=== PATIENT | female | born 1990 | race American Indian/Alaskan Native ===

== ENCOUNTER 2018-06-05 05:03 | Emergency (ER) | payer SELFPAY ==
[2018-06-05 05:28] VITALS: BP 121/79
--- NOTE | 2018-06-05 06:15 | Emergency Department Report ---
ED ENT HPI - General Chief complaint: Dental/Oral Stated complaint: SWOLLEN LIP Time Seen by Provider: 06/05/18 06:07 Source: patient Mode of arrival: Ambulatory Limitations: No Limitations - History of Present Illness Initial comments: 28-year-old -[place] female comes in reporting that she's had a bad tooth in her mouth for about a month she has been gargling with peroxide and this morning she woke up with her lips swollen. Patient states she's been taking ibuprofen PM last dose was this morning around 1 AM. Patient denies any fever chills no nausea vomiting. Patient does report a couch he took penicillin currently takes no medications on a daily basis and has no past medical history. MD complaint: tooth pain -: month(s) (1) Location: tooth # (13) Severity: mild Severity scale (0 -10): 4 Quality: aching Consistency: constant Improves with: NSAID Worsens with: eating Context- Dental: history of dental caries Associated Symptoms: gum swelling. denies: fever - Related Data Previous Rx's Medication Instructions Recorded Last Taken Type Clindamycin [Clindamycin CAP] 300 mg PO Q8H 10 Days #30 cap 06/05/18 Unknown Rx Ibuprofen [Motrin 400 MG tab] 400 mg PO Q8H PRN #30 tablet 06/05/18 Unknown Rx Allergies Allergy/AdvReac Type Severity Reaction Status Date / Time Penicillins Allergy Rash Verified 06/05/18 05:22 ED Dental HPI - General Chief complaint: Dental/Oral Stated complaint: SWOLLEN LIP Time Seen by Provider: 06/05/18 06:07 Source: patient Mode of arrival: Ambulatory Limitations: No Limitations - Related Data Previous Rx's Medication Instructions Recorded Last Taken Type Clindamycin [Clindamycin CAP] 300 mg PO Q8H 10 Days #30 cap 06/05/18 Unknown Rx Ibuprofen [Motrin 400 MG tab] 400 mg PO Q8H PRN #30 tablet 06/05/18 Unknown Rx Allergies Allergy/AdvReac Type Severity Reaction Status Date / Time Penicillins Allergy Rash Verified 06/05/18 05:22 ED Review of Systems ROS: Stated complaint: SWOLLEN LIP Other details as noted in HPI Comment: All other systems reviewed and negative ENT: dental pain ED Past Medical Hx - Past Medical History Previous Medical History?: No - Surgical History Past Surgical History?: No - Social History Smoking Status: Never Smoker Substance Use Type: None - Medications Home Medications: Home Medications Medication Instructions Recorded Confirmed Last Taken Type Clindamycin [Clindamycin CAP] 300 mg PO Q8H 10 Days #30 cap 06/05/18 Unknown Rx Ibuprofen [Motrin 400 MG tab] 400 mg PO Q8H PRN #30 tablet 06/05/18 Unknown Rx ED Physical Exam - General Limitations: No Limitations General appearance: alert, in no apparent distress - Head Head exam: Present: atraumatic, normocephalic - Eye Eye exam: Present: normal appearance - Expanded ENT Exam Expanded Teeth exam: Present: dental tenderness # (13), gingival enlargement, other (mild swelling of the upper chest cheek) Throat exam: Positive: normal inspection - Neck Neck exam: Present: normal inspection, full ROM. Absent: tenderness, lymphadenopathy - Respiratory Respiratory exam: Present: normal lung sounds bilaterally. Absent: respiratory distress - Cardiovascular Cardiovascular Exam: Present: regular rate, normal rhythm. Absent: systolic murmur, diastolic murmur, rubs, gallop ED Course Vital Signs 06/05/18 05:23 Temperature 98.2 F Pulse Rate 92 H Respiratory 18 Rate Blood Pressure 121/79 O2 Sat by Pulse 100 Oximetry ED Medical Decision Making - Medical Decision Making Patient has been evaluated by this provider in fast track. Patient will be placed on clindamycin for tooth infection. Patient will be referred to community [facility]. Patient continue with ibuprofen or Tylenol for pain management. Critical care attestation.: If time is entered above; I have spent that time in minutes in the direct care of this critically ill patient, excluding procedure time. ED Disposition Clinical Impression: Abscess, dental Disposition: DC-01 TO HOME OR SELFCARE Is pt being admited?: No Does the pt Need Aspirin: No Condition: Stable Instructions: Dental Abscess (ED) Additional Instructions: Complete antibiotics as prescribed. Pain medication as needed. Increase her water intake while taking ibuprofen and follow up with the dentist. Prescriptions: Clindamycin [Clindamycin CAP] 300 mg PO Q8H 10 Days #30 cap Ibuprofen [Motrin 400 MG tab] 400 mg PO Q8H PRN #30 tablet PRN Reason: Pain, Moderate (4-6) Referrals: [facility] [Outside] - 3-5 Days [facility] [Outside] - 3-5 Days [facility] [Outside] - 3-5 Days Forms: Work/School Release Form(ED)
== END 2018-06-05 06:30 | disposition home or self-care (01) ==
LOC: ED 05:03
DX: K04.7 Periapical abscess without sinus (principal); Z88.0 Allergy status to penicillin
CPT/HCPCS: 99282

== ENCOUNTER 2018-11-29 18:43 | Emergency (ER) | payer SELFPAY ==
[2018-11-29] MEDS ORDERED: NACL 0.9% 500 ML 500 ML IV ONE (18:51)
--- NOTE | 2018-11-29 18:57 | Event Note ---
ED Screening Note ED Screening Note: on flagyl had stool tests that were positive per pt for hpylori she went to Dr Hernandez for nausea/vomiting co tachycardia today stool x 1; nausea lmp 7-15 no cig no etoh no drugs no fever or chills concern for underlying infection This initial assessment/diagnostic orders/clinical plan/treatment(s) is/are subject to change based on patients health status, clinical progression and re- assessment by fellow clinical providers in the ED. Further treatment and workup at subsequent clinical providers discretion. Patient/guardian urged not to elope from the ED as their condition may be serious if not clinically assessed and managed. Initial orders include: labs urine
[2018-11-29 19:24] LABS: Basophils % (Auto) 0.4 % (0.0-1.8); Eosinophils # (Auto) 0.1 K/mm3 (0.0-0.4); Hematocrit 37.2 % (30.3-42.9); Lymphocytes # (Auto) 2.3 K/mm3 (1.2-5.4); Lymphocytes % (Auto) 28.2 % (13.4-35.0); Mean Corpuscular HGB Conc 35 % (30-34); Mean Corpuscular Volume 96 fl (79-97); Monocytes # (Auto) 0.7 K/mm3 (0.0-0.8); Monocytes % (Auto) 8.9 % (0.0-7.3); Platelet Count 297 K/mm3 (140-440); Red Blood Count 3.87 M/mm3 (3.65-5.03); Red Cell Distribution Width 13.9 % (13.2-15.2)
[2018-11-29 19:36] LABS: Alanine Aminotransferase 12 units/L (7-56); Albumin 4.4 g/dL (3.9-5); BUN/Creatinine Ratio 18; Blood Urea Nitrogen 11 mg/dL (7-17); Calcium 9.2 mg/dL (8.4-10.2); Hemolysis Index 4
--- NOTE | 2018-11-29 23:12 | Emergency Department Report ---
HPI - General Chief Complaint: Arrhythmia/Palpitations Time Seen by Provider: 11/29/18 18:48 - HPI HPI: 28-year-old female presents to the emergency department with a complaint of palpitations and a rapid heartbeat that started about one hour prior to arrival. She denies any chest pain, shortness of breath, fever or any other physical complaints at this time. She was recently placed on some antibiotics secondary to H. pylori. She denies any tobacco or illicit drug use. No recent travel or sick contacts at home. She has not taken anything for her symptoms prior to arrival today. Her primary care physician is a Dr. Hernandez. ED Past Medical Hx - Past Medical History Previous Medical History?: Yes Additional medical history: + Pylori - Surgical History Past Surgical History?: No - Social History Smoking Status: Never Smoker Substance Use Type: None - Medications Home Medications: Home Medications Medication Instructions Recorded Confirmed Last Taken Type Clindamycin [Clindamycin CAP] 300 mg PO Q8H 10 Days #30 cap 06/05/18 Unknown Rx Ibuprofen [Motrin 400 MG tab] 400 mg PO Q8H PRN #30 tablet 06/05/18 Unknown Rx ED Review of Systems ROS: Stated complaint: HEART BEAT FAST Other details as noted in HPI Comment: All other systems reviewed and negative Constitutional: denies: chills, fever Eyes: denies: eye pain, vision change ENT: denies: ear pain, throat pain Respiratory: denies: cough, shortness of breath Cardiovascular: palpitations. denies: chest pain Gastrointestinal: denies: abdominal pain, vomiting Genitourinary: denies: dysuria, frequency Musculoskeletal: denies: back pain, arthralgia Skin: denies: rash, lesions Neurological: denies: headache, weakness Physical Exam - Physical Exam Vital Signs: Vital Signs 11/29/18 11/29/18 11/29/18 18:49 22:30 22:46 Temperature 97.4 F L Pulse Rate 129 H 114 H 105 H Respiratory 20 16 22 Rate Blood Pressure 128/72 O2 Sat by Pulse 100 100 Oximetry 11/29/18 23:00 Temperature Pulse Rate 107 H Respiratory 13 Rate Blood Pressure 117/73 O2 Sat by Pulse 100 Oximetry Physical Exam: GENERAL: The patient is well-developed well-nourished. HENT: Normocephalic. Atraumatic. Patient has moist mucous membranes. EYES: Extraocular motions are intact. NECK: Supple. Trachea is midline. CHEST/LUNGS: Clear to auscultation. There is no respiratory distress noted. HEART/CARDIOVASCULAR: Regular. There is mild tachycardia. There is no murmur. ABDOMEN: Abdomen is soft, nontender. Patient has normal bowel sounds. There is no abdominal distention. SKIN: Skin is warm and dry. NEURO: The patient is awake, alert, and oriented. The patient is cooperative. The patient has no focal neurologic deficits. The patient has normal speech. MUSCULOSKELETAL: There is no tenderness or deformity. There is no limitation range of motion. There is no evidence of acute injury. ED Course Vital Signs 11/29/18 11/29/18 11/29/18 18:49 22:30 22:46 Temperature 97.4 F L Pulse Rate 129 H 114 H 105 H Respiratory 20 16 22 Rate Blood Pressure 128/72 O2 Sat by Pulse 100 100 Oximetry 11/29/18 23:00 Temperature Pulse Rate 107 H Respiratory 13 Rate Blood Pressure 117/73 O2 Sat by Pulse 100 Oximetry ED Medical Decision Making - Lab Data Result diagrams: 11/29/18 19:00 11/29/18 19:00 - EKG Data -: EKG Interpreted by Ar EKG shows normal: sinus rhythm, axis, intervals, QRS complexes, ST-T waves Rate: tachycardia (110 bpm) - EKG Data When compared to previous EKG there are: previous EKG unavailable Interpretation: other (Sinus Tachycardia) - Radiology Data Radiology results: report reviewed CT angiography of the chest with intravenous contrast and multiplanar MIP recons tructions INDICATION / CLINICAL INFORMATION: Palpitations, tachycardia and elevated d- dimer.. TECHNIQUE: Axial CT images were obtained after injection of 100 cc Omnipaque 350 IV contrast using CTA protocol. 3 plane MIP / 3D reconstructions were produced. All CT scans at this location are perform ed using CT dose reduction for ALARA by means of automated exposure control. COMPARISON: None available. FINDINGS: There is excellent opacification of the pulmonary arterial system bilaterally without intraluminal filling defect to suggest acute PTE. The thoracic aorta is normal in caliber without dissection. The visualized coronary vessels are unremarkable. The tracheobronchial tree is normal. The lung parenchyma is clear. There is no evidence of adenopathy or effusion. The visualized upper abdomen is normal. No acute osseous abnormality is seen. IMPRESSION: No evidence of acute PTE or other significant abnormality. - Medical Decision Making This patient originally presented with the complaint of palpitations and was found to have some tachycardia with a heart rate of about 130. For this reason, she was called a code sepsis through triage. However the patient does not appear to meet SIRS or sepsis criteria. There are no signs of any infections. No leukocytosis. Lactic acidosis. Overall, labs are mostly unremarkable except for a slightly elevated and equivocal d-dimer. For this reason, the patient had a CT angiography of the chest completed that did not show any pulmonary embolism, dissection, aneurysm, or any other acute process. She was given some IV fluid. I do believe that there is some type of a stress or anxiety component to her tachycardia as the heart rate will be 85-90 when I walk into the room and I can see visibly rise up to about 120 or so when discussing her symptoms or any lab or imaging results, even if they are negative. However the patient's palpitations stopped shortly after presentation and have not returned. Her EKG was repeated twice and each time she has some mild sinus tachycardia without any signs of any significant tachyarrhythmia. The rest of the patient's vital signs were stable throughout her ED course as well. For all these reasons, the patient appears safe for discharge home at this time. She has been given a referral for cardiology to follow up regarding the palpitations and tachycardia we discussed the possibility of needing a Holter monitor. She'll return to the ER with any worsening of her symptoms or any acute distress. - Differential Diagnosis dysrhythmia, Sepsis, PE, hyperthyroidism Critical Care Time: No Critical care attestation.: If time is entered above; I have spent that time in minutes in the direct care of this critically ill patient, excluding procedure time. ED Disposition Clinical Impression: Palpitations, Tachycardia Disposition: DC-01 TO HOME OR SELFCARE Is pt being admited?: No Condition: Stable Instructions: Palpitations (ED) Additional Instructions: You were seen today for your palpitations and fast heart rate. Please follow-up with your primary care physician in the next few days. I am giving him a referral for a local motor operator, Dr. Erazo, to follow up regarding your palpitations and tachycardia. Return to the emergency Department with any worsening of your symptoms or any acute distress. I recommend avoiding any caffeine or any supplements that may increase your heart rate. Referrals: ELDA ERAZO MD [Staff Physician] - 2-3 Days Time of Disposition: 01:27
[2018-11-29 23:44] LABS: Bilirubin,Urine NEG (Negative); Blood,Urine NEG (Negative); Color,Urine Amber (Yellow); Mucus,Urine 3+ /HPF
[2018-11-29 23:59] LABS: HCG Qualitative,Urine Negative (Negative)
[2018-11-30 00:32] VITALS: BP 101/57
--- NOTE | 2018-11-30 01:15 | Cat Scan Report ---
CT angiography of the chest with intravenous contrast and multiplanar MIP reconstructions INDICATION / CLINICAL INFORMATION: Palpitations, tachycardia and elevated d-dimer.. TECHNIQUE: Axial CT images were obtained after injection of 100 cc Omnipaque 350 IV contrast using CTA protocol. 3 plane MIP / 3D reconstructions were produced. All CT scans at this location are performed using CT dose reduction for ALARA by means of automated exposure control. COMPARISON: None available. FINDINGS: There is excellent opacification of the pulmonary arterial system bilaterally without intraluminal fi lling defect to suggest acute PTE. The thoracic aorta is normal in caliber without dissection. The vi sualized coronary vessels are unremarkable. The tracheobronchial tree is normal. The lung parenchyma is clear. There is no evidence of adenopathy or effusion. The visualized upper abdomen is normal. No acute osseous abnormality is seen. IMPRESSION: No evidence of acute PTE or other significant abnormality. Signer Name: Jerzy Mandujano MD Signed: 11/30/2018 1:11 AM Workstation Name: [id number]
== END 2018-11-30 01:44 | disposition home or self-care (01) ==
LOC: ED 18:43
DX: R00.0 Tachycardia, unspecified (principal)
CPT/HCPCS: 36415; 71275; 80053; 81001; 81025; 82140; 84443; 85025; 85379; 87040; 93005; 93010; 99284; Q9967